=== PATIENT | female | born 2000 | race Caucasian/White ===

== ENCOUNTER 2018-10-23 20:25 | Inpatient (IN) | payer MEDICAID ==
[2018-10-23] MEDS ORDERED: XYLOCAINE 2% INFILTRATI ONE (22:56)
[2018-10-23] MEDS ORDERED: SUBLIMAZE IV PRN (22:56)
[2018-10-23] MEDS ORDERED: BRETHINE SUB-Q PRN (22:56)
[2018-10-23] MEDS ORDERED: PITOCin/NS 20 UNIT/1000ML DRIP 20 UNITS/1,000 ML BAG IV SCH (23:00)
[2018-10-23] MEDS ORDERED: PITOCin/NS 30 UNIT/500ML 30 UNITS/500 ML BAG IV SCH (23:00)
--- NOTE | 2018-10-23 23:09 | History and Physical Report ---
Addendum entered and electronically signed by EULA GRIMES CNM 10/24/18 10:23: + pooling of clear amniotic fluid and positive fern test noted. Original Note: History of Present Illness Date of examination: 10/23/18 Chief complaint: Leaking of fluid from vagina. History of present illness: 17 year old presents to L&D at 37 weeks gestation complaining of leaking clear fluid from vagina since noon today. Patient denies vaginal bleeding. She denies regular contractions. Patient reports active movement. LMP 02/06/2018. EDC 11/13/2018. Patient received care at [facility]. She also saw [facility] [place] for class 3 obesity. significant for the following: class 3 obesity, UTI (treated with Macrobid), Vitamin D deficiency (supplemented with Vitamin D), and chlamydia (treated and cured). labs are as follows: O+, antibody screen negative, rubella immune, RPR nonreactive, hepatitis B surface antigen negative, HIV negative, hemoglobin electrophoresis AA, gonorrhea negative, chlamydia positive (JAX negative), hemoglobin A1C 5.2, 1 hour glucola 83, GBS negative. Past History Past Medical History: other (class 3 obesity) Past Surgical History: no surgical history [facility] OUTSIDE History: chlamydia (treated and cured during ). denies: abnormal PAP smear, gonorrhea, hepatitis B, herpes, HIV, syphilis, trichomonas Family/Genetic History: diabetes Social history: lives with family, full code. denies: smoking, alcohol abuse, prescription drug abuse, IV drug use - Obstetrical History Expected Date of Delivery: 11/13/18 Actual Gestation: 37 Week(s) 1 Day(s) : 2 Para: 1 Hx # Term Pregnancies: 2 Number of Pregnancies: 0 Spontaneous Abortions: 0 Induced : 0 Number of Living Children: 1 Medications and Allergies Allergies Allergy/AdvReac Type Severity Reaction Status Date / Time No Known Allergies Allergy Verified 10/24/15 04:19 Home Medications Medication Instructions Recorded Confirmed Last Taken Type No Known Home Medications [No 12/09/15 12/09/15 Unknown History Reported Home Medications] Active Meds: Active Medications Ephedrine Sulfate (Ephedrine Sulfate) 10 mg IV Q2M PRN PRN Reason: Hypotension Fentanyl (Sublimaze) 100 mcg IV Q2H PRN PRN Reason: Labor Pain Lactated Ringer's (Lactated Ringers) 1,000 mls @ 125 mls/hr IV DIRECT DUSTY Oxytocin/Sodium Chloride (Pitocin/Ns 20 Unit/1000ml Drip) 20 units in 1,000 mls @ 125 mls/hr IV DIRECT DUSTY Oxytocin/Sodium Chloride (Pitocin/Ns 30 Unit/500ml) 30 units in 500 mls @ 0 mls/hr IV TITR DUSTY; Protocol Lidocaine (Xylocaine 2%) 20 ml INFILTRATI ONCE ONE Stop: 10/23/18 22:57 Terbutaline Sulfate (Brethine) 0.25 mg SUB-Q ONCE PRN PRN Reason: Hyperstimulation/Hypertonicity Review of Systems All systems: negative (leaking of clear fluid from vagina) - Vital Signs Vital signs: Vital Signs Pulse BP 85 117/66 10/23/18 21:06 10/23/18 21:06 Temp Pulse Resp BP Pulse Ox 85 117/66 10/23/18 21:06 10/23/18 21:06 - Physical Exam Abdomen: Positive: normal appearance, soft. Negative: distention, tenderness, guarding, rigidity Genitourinary (Female): Positive: normal external genitalia, normal perenium. Negative: perineal/vulvar lesions (no lesions noted on careful exam with bright light upon admission) Vagina: Positive: normal moisture Uterus: Positive: enlarged (S=D) Anus/Rectum: Positive: normal perianal skin Extremities: Positive: normal. Negative: tenderness, edema - Obstetrical FHR: category 1 Uterine Contraction Monitor Mode: External Cervical Dilatation: 2.5 Cervical Effacement Percentage: 50 station: -3 to -4 Uterine Contraction Pattern: Irregular Uterine Contraction Intensity: Mild Results All other labs normal. Assessment and Plan A: at 37 weeks gestation. Spontaneous rupture of membranes. GBS negative. Not in active labor. Class 3 obesity. P: Admit. Continuous EFM. Pitocin augmentation of labor. Discussed with patient risks and benefits of Pitocin augmentation of labor. Patient consented to Pitocin augmentation of labor.
[2018-10-24] MEDS: LACTATED RINGERS 1,000 ML IV SCH ×2 (01:00→07:34)
[2018-10-24 01:33] LABS: Hematocrit 33.6 % (30.3-42.9); Hemoglobin 11.4 gm/dl (10.1-14.3); Mean Corpuscular HGB Conc 34 % (30-34); Mean Corpuscular Volume 87 fl (79-97); Platelet Count 240 K/mm3 (140-440); Red Blood Count 3.85 M/mm3 (3.65-5.03); Red Cell Distribution Width 13.4 % (13.2-15.2)
[2018-10-24] MEDS ORDERED: AMPICILLIN/NS 2 GM/100 ML 2 GM/100 ML BAG IV ONE (06:41)
--- NOTE | 2018-10-24 10:28 | Progress Note ---
Assessment and Plan A: at 37 weeks, 1 day gestation. SROM. P: Continue Pitocin augmentation of labor. Continue EFM. Small forebag ruptured to speed progress of labor. Subjective - Subjective Date of service: 10/24/18 Principal diagnosis: at 37 weeks, 1 day gestation; SROM; augmentation of labor Interval history: 17 year old was admitted last night due to leaking of water. Patient is having labor augmented at 37 weeks, 1 day gestation due to confirmed SROM. Patient is receiving Pitocin. She is starting to feel contractions more and contractions are becoming more regular. Patient reports: loss of fluid, movement normal, contractions, no vaginal bleeding Objective - Vital Signs Vital Signs: Vital Signs - 12hr 10/23/18 10/23/18 10/23/18 23:44 23:49 23:54 Temperature Pulse Rate 78 84 78 Respiratory Rate Blood Pressure O2 Sat by Pulse 97 97 97 Oximetry 10/23/18 10/24/18 10/24/18 23:59 00:04 00:09 Temperature Pulse Rate 87 72 80 Respiratory Rate Blood Pressure O2 Sat by Pulse 98 97 96 Oximetry 10/24/18 10/24/18 10/24/18 00:11 00:14 00:19 Temperature Pulse Rate 86 78 80 Respiratory Rate Blood Pressure 116/55 O2 Sat by Pulse 94 97 97 Oximetry 10/24/18 10/24/18 10/24/18 00:24 00:29 00:33 Temperature 96.4 F L Pulse Rate 74 78 Respiratory 18 Rate Blood Pressure O2 Sat by Pulse 97 98 Oximetry 10/24/18 10/24/18 10/24/18 00:34 00:39 00:44 Temperature Pulse Rate 84 77 77 Respiratory Rate Blood Pressure O2 Sat by Pulse 97 97 97 Oximetry 10/24/18 10/24/18 10/24/18 00:49 00:54 00:59 Temperature Pulse Rate 81 78 78 Respiratory Rate Blood Pressure O2 Sat by Pulse 97 97 97 Oximetry 10/24/18 10/24/18 10/24/18 01:04 01:09 01:14 Temperature Pulse Rate 83 79 76 Respiratory Rate Blood Pressure 118/62 O2 Sat by Pulse 98 98 97 Oximetry 10/24/18 10/24/18 10/24/18 01:19 01:24 01:29 Temperature Pulse Rate 74 86 81 Respiratory Rate Blood Pressure O2 Sat by Pulse 97 96 97 Oximetry 10/24/18 10/24/18 10/24/18 01:34 01:39 01:44 Temperature Pulse Rate 90 76 78 Respiratory Rate Blood Pressure O2 Sat by Pulse 96 96 95 Oximetry 10/24/18 10/24/18 10/24/18 01:49 01:54 01:59 Temperature Pulse Rate 76 73 84 Respiratory Rate Blood Pressure O2 Sat by Pulse 95 95 95 Oximetry 10/24/18 10/24/18 10/24/18 02:04 02:09 02:11 Temperature Pulse Rate 81 78 77 Respiratory Rate Blood Pressure 110/60 O2 Sat by Pulse 96 97 Oximetry 10/24/18 10/24/18 10/24/18 02:14 02:19 02:23 Temperature 96.9 F L Pulse Rate 81 82 Respiratory 18 Rate Blood Pressure O2 Sat by Pulse 96 97 Oximetry 10/24/18 10/24/18 10/24/18 02:24 02:29 02:34 Temperature Pulse Rate 101 H 88 93 H Respiratory Rate Blood Pressure O2 Sat by Pulse 96 98 96 Oximetry 10/24/18 10/24/18 10/24/18 02:39 02:44 02:49 Temperature Pulse Rate 86 83 87 Respiratory Rate Blood Pressure O2 Sat by Pulse 97 96 96 Oximetry 10/24/18 10/24/18 10/24/18 02:54 02:59 03:04 Temperature Pulse Rate 85 89 78 Respiratory Rate Blood Pressure O2 Sat by Pulse 97 96 95 Oximetry 10/24/18 10/24/18 10/24/18 03:09 03:10 03:14 Temperature Pulse Rate 81 76 75 Respiratory Rate Blood Pressure 89/50 O2 Sat by Pulse 97 96 Oximetry 10/24/18 10/24/18 10/24/18 03:19 03:24 03:29 Temperature Pulse Rate 72 79 81 Respiratory Rate Blood Pressure O2 Sat by Pulse 96 96 95 Oximetry 10/24/18 10/24/18 10/24/18 03:34 03:39 03:44 Temperature Pulse Rate 75 77 77 Respiratory Rate Blood Pressure O2 Sat by Pulse 96 96 97 Oximetry 10/24/18 10/24/18 10/24/18 03:57 04:02 04:07 Temperature Pulse Rate 76 77 78 Respiratory Rate Blood Pressure O2 Sat by Pulse 97 97 97 Oximetry 10/24/18 10/24/18 10/24/18 04:10 04:12 04:17 Temperature Pulse Rate 77 79 78 Respiratory Rate Blood Pressure 111/66 O2 Sat by Pulse 97 97 Oximetry 10/24/18 10/24/18 10/24/18 04:22 04:27 04:32 Temperature Pulse Rate 81 78 90 Respiratory Rate Blood Pressure O2 Sat by Pulse 97 97 97 Oximetry 10/24/18 10/24/18 10/24/18 04:37 04:42 04:44 Temperature 99.1 F Pulse Rate 80 89 Respiratory 20 Rate Blood Pressure O2 Sat by Pulse 97 97 Oximetry 10/24/18 10/24/18 10/24/18 04:47 04:52 04:57 Temperature Pulse Rate 80 77 82 Respiratory Rate Blood Pressure O2 Sat by Pulse 97 98 98 Oximetry 10/24/18 10/24/18 10/24/18 05:02 05:07 05:09 Temperature Pulse Rate 78 79 78 Respiratory Rate Blood Pressure 113/70 O2 Sat by Pulse 97 97 Oximetry 10/24/18 10/24/18 10/24/18 05:12 05:17 05:22 Temperature Pulse Rate 78 78 77 Respiratory Rate Blood Pressure O2 Sat by Pulse 97 97 97 Oximetry 10/24/18 10/24/18 10/24/18 05:27 05:32 05:37 Temperature Pulse Rate 81 78 76 Respiratory Rate Blood Pressure O2 Sat by Pulse 97 97 98 Oximetry 10/24/18 10/24/18 10/24/18 05:42 05:47 05:52 Temperature Pulse Rate 78 79 79 Respiratory Rate Blood Pressure O2 Sat by Pulse 97 97 97 Oximetry 10/24/18 10/24/18 10/24/18 05:57 06:02 06:07 Temperature Pulse Rate 79 79 78 Respiratory Rate Blood Pressure O2 Sat by Pulse 97 97 97 Oximetry 10/24/18 10/24/18 10/24/18 06:09 06:12 06:17 Temperature Pulse Rate 77 83 80 Respiratory Rate Blood Pressure 109/66 O2 Sat by Pulse 98 97 Oximetry 10/24/18 10/24/18 10/24/18 06:22 06:24 06:27 Temperature 98.2 F Pulse Rate 82 80 Respiratory 20 Rate Blood Pressure O2 Sat by Pulse 98 97 Oximetry 10/24/18 10/24/18 10/24/18 06:32 06:37 06:42 Temperature Pulse Rate 81 78 79 Respiratory Rate Blood Pressure O2 Sat by Pulse 97 97 98 Oximetry 10/24/18 10/24/18 10/24/18 06:47 06:52 07:15 Temperature 99.0 F Pulse Rate 85 78 Respiratory 16 Rate Blood Pressure O2 Sat by Pulse 98 98 Oximetry 10/24/18 10/24/18 08:51 08:55 Temperature 98.5 F Pulse Rate 77 Respiratory 16 Rate Blood Pressure 124/76 O2 Sat by Pulse Oximetry - Exam Abdomen: Present: normal appearance, soft. Absent: distention, tenderness, guarding, rigidity Uterus: Present: fundal height above umbilicus FHR: category 1 Uterine Contraction Monitor Mode: External Cervical Dilatation: 4.5 Cervical Effacement Percentage: 70 station: -2 Uterine Contraction Pattern: Regular Uterine Contraction Intensity: Mild Extremities: normal - Labs Labs: Laboratory Results - last 24 hr 10/23/18 10/23/18 00:50 00:50 WBC 8.6 RBC 3.85 Hgb 11.4 Hct 33.6 MCV 87 MCH 30 MCHC 34 RDW 13.4 Plt Count 240 Blood Type O POSITIVE Antibody Screen Negative
[2018-10-24] MEDS ORDERED: AMPICILLIN/NS 1 GM/50 ML 1 GM/50 ML BAG IV SCH (10:45)
[2018-10-24] MEDS ORDERED: ZOFRAN ONE (12:37)
[2018-10-24] MEDS ORDERED: DULCOLAX PR PRN (13:03)
[2018-10-24] MEDS ORDERED: LANSINOH TP PRN (13:03)
[2018-10-24] MEDS ORDERED: MILK OF MAGNESIA PO PRN (13:03)
[2018-10-24] MEDS ORDERED: NORCO 5/325 PO PRN (13:03)
[2018-10-24] MEDS ORDERED: TUCKS PAD TP PRN (13:03)
--- NOTE | 2018-10-24 13:18 | Procedure Note ---
OB Delivery Note - Delivery Date of Delivery: 10/24/18 Surgeon: SUGEY COOPER Estimated blood loss: other (250cc) - Vaginal Delivery presentation: vertex Delivery position: OA Intrapartum events: none Delivery augmentation: pitocin Delivery monitor: external FHT, external uterine Route of delivery: Delivery placenta: spontaneous Delivery cord: 3 umbilical vessels Episiotomy: none Delivery laceration: none Anesthesia: none Delivery comments: Spontaneous vaginal delivery of liveborn female weighing 7lbs 15oz @ 1241pm over intact perineum with apgars of 7 and 9. Baby was placed on maternal chest, dried and stimulated, bulb suction, cried spontaneously. 3 vessel cord clamped and cut, placed under warmer. NICU called to evaluate due to Fentanyl given 1 hour before . Spontaneous delivery via mark mechanism of intact placenta and membranes at 1247pm. EBL approximately 250 cc. Pitocin given IV after placental delivery, fundus firm, slightly deviated to the left. No lacerations noted. Vaginal sweep negative, sponge count correct. Mother and infant in stable condition. Ya Solano/Sugey Cooper CNM
[2018-10-24] MEDS: IBUPROFEN PO SCH ×3 (13:42→23:24)
[2018-10-24] MEDS ORDERED: ZOFRAN IV ONE (13:42)
[2018-10-24] MEDS ORDERED: SODIUM CHLORIDE FLUSH SYRINGE 10 ML IV NR (14:00)
[2018-10-25] MEDS: IBUPROFEN PO SCH (05:34)
[2018-10-25 06:41] LABS: Hematocrit 32.1 % (30.3-42.9); Hemoglobin 10.4 gm/dl (10.1-14.3)
[2018-10-25 08:09] VITALS: BP 115/51
[2018-10-25] MEDS ORDERED: FEOSOL PO ONE (09:09)
--- NOTE | 2018-10-25 09:58 | Progress Note ---
Assessment and Plan A: day 1 S/P . Anemia due to and delivery. P: Discharge patient home later today when baby is able to go. Advised patient to continue taking her vitamins and iron supplements at home. discharge instructions and warning signs discussed in detail with patient. Advised patient to avoid intercourse, lifting and heavy housework, driving, tub baths (may take showers). Advised patient to follow up at [facility] in 6 weeks for exam. Patient voiced understanding of all instructions. Subjective - Subjective Date of service: 10/25/18 Principal diagnosis: day 1 S/P Interval history: day 1 S/P spontaneous vaginal delivery. Doing well. Desires discharge today. Patient is . She reports a small amount of lochia and no clots. Patient is voiding without difficulty and ambulating well. She is tolerating a regular diet without nausea or vomiting. She is passing gas. Patient denies headache, chest pain, cough, shortness of breath, dizziness, abdominal pain, leg pain, heavy vaginal bleeding, or any other problems. Patient reports: appetite normal, voiding normally, pain well controlled, flatus, ambulating normally, no dizzy ambulation, no nauseated : doing well Objective - Vital Signs Latest vital signs: Vital Signs Temp Pulse Resp BP BP Pulse Ox 10/25/18 08:08 97.7 F 67 16 115/51 97 10/25/18 00:00 98.2 F 65 18 107/54 10/24/18 20:10 98.2 F 70 18 104/65 10/24/18 14:45 98.4 F 79 18 112/61 10/24/18 14:27 66 121/58 Intake and Output 10/24/18 10/25/18 10/25/18 23:59 07:59 15:59 Intake Total 240 Output Total 500 600 Balance -500 -360 Intake: Oral 240 Output: Urine 500 600 Void 500 600 Other: Total, Intake Amount 240 Total, Output Amount 250 600 # Voids Void 3 - Exam Breasts: Present: normal Cardiovascular: Present: Regular rate, Normal S1, Normal S2 Lungs: Present: Clear to auscultation Abdomen: Present: normal appearance, soft. Absent: distention, tenderness, guarding, rigidity Uterus: Present: normal, firm, fundal height below umbilicus. Absent: bogginess, tenderness Extremities: Present: edema (mild pedal edema bilaterally). Absent: tenderness
--- NOTE | 2018-10-25 10:05 | Discharge Summary ---
Providers - Providers Date of Admission: 10/23/18 23:42 Date of discharge: 10/25/18 Attending physician: OLIMPIA FERNANDEZ MD None Primary care physician: OLIMPIA FERNANDEZ MD Hospitalization Reason for admission: rupture of membranes Delivery: Episiotomy: none Laceration: none Other procedures: none complications: none Discharge diagnosis: IUP at term delivered [place] baby: female Pertinent studies: Labs Hospital course: Normal hospital course. Condition at discharge: Good Disposition: DC-01 TO HOME OR SELFCARE - Discharge Diagnoses (1) Term delivered Status: Acute (2) Anemia due to blood loss Status: Acute Plan - Provider Discharge Summary Activity: routine, no sex for 6 weeks, no heavy lifting 4 weeks, no strenuous exercise Diet: routine Instructions: routine Additional instructions: Call your doctor immediately for: * Fever > 100.5 * Heavy vaginal bleeding ( >1 pad per hour) * Severe persistent headache * Shortness of breath * Reddened, hot, painful area to leg or breast Continue taking your vitamins and iron supplements at home. - Follow up plan Follow up: OLIMPIA FERNANDEZ MD [Primary Care Provider] - 6 Weeks
== END 2018-10-25 17:00 | disposition home or self-care (01) | DRG 775 ==
LOC: TRG 20:25 → LD 23:42 → OB 10-24 15:31
PROVIDERS: ADMIT Obstetrics & Gynecology; ATTEND Obstetrics & Gynecology
PROC: 10E0XZZ Delivery of Products of Conception, External Approach (ICD-10-PCS; principal; 2018-10-24)
DX: O99.02 Anemia complicating childbirth (principal); D50.0 Iron deficiency anemia secondary to blood loss (chronic); E66.9 Obesity, unspecified; O99.214 Obesity complicating childbirth; Z37.0 Single live birth; Z83.3 Family history of diabetes mellitus; Z3A.37 37 weeks gestation of pregnancy
CPT/HCPCS: 36415; 85014; 85018; 85027; 86592; 86850; 86900; 86901; G0378; J0290; J2405; J2590; J3010; J7120